=== PATIENT | male | born 1985 | race Hispanic/Latino ===

== ENCOUNTER 2018-02-27 11:41 | Emergency (ER) | payer OTHER ==
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
== END 2018-02-27 13:24 | disposition home or self-care (01) ==
LOC: ERS 11:41
DX: S16.1XXA Strain of muscle, fascia and tendon at neck level, initial encounter (principal); M54.6 Pain in thoracic spine; V85.6XXA Passenger of special construction vehicle injured in nontraffic accident, initial encounter
CPT/HCPCS: 70450; 72125; 72128